=== PATIENT | male | born 1985 | race Two or more races ===

== ENCOUNTER 2025-04-16 08:18 | Emergency (ER) | payer SELFPAY ==
[~2025-04-16] VITALS: Ht 185.4 cm; Wt 81.0 kg
[2025-04-16 08:48] VITALS: PULSE 97; RESP 18; O2SAT 99
--- NOTE | 2025-04-16 08:55 | ED.PDOC ---
General HPI Comments 40 y.o male presents to the ED for a chief complaint of right flank pain radiating to his back that started 3 days ago. Patient describes pain as a throbbing sensation, is constant, and has no alleviating factors. Additionally, he mentions urine is dark with no blood noted. He denies any dysuria, fever, chills, abdominal pain, nausea, vomiting. He denies medical history or allergies. Chief Complaint: Flank Pain Time Seen by MD: 08:36 Reviewed notes: Nurses Notes, Medications, Allergies Allergies: Coded Allergies: NO KNOWN ALLERGIES (Unverified , 04/16/25) Information Source: Patient Mode of Arrival: Ambulatory Timing: Days (3) Duration: Since onset Onset: Spontaneous Symptoms: None History of: None Location: (R) Flank, (L)Flank Modifying factors: None associated signs and symptoms: Flank Pain, Back Pain Past Medical History PAST MEDICAL HISTORY: Denies Surgical History: Denies all surgeries Family History Family History: Reviewed,noncontributory to illness Social History Smoker: Cigarettes Alcohol: Denies ETOH Use Drugs: Denies Drug Use Lives In: Home Constitutional: denies: chills, diaphoresis, fatigue, fever, malaise, sweats, weakness, others EENTM: denies: blurred vision, double vision, ear bleeding, ear discharge, ear drainage, ear pain, ear ringing, eye pain, eye redness, hearing loss, mouth pain, mouth swelling, nasal discharge, nose bleeding, nose congestion, nose pain, photophobia, tearing, throat pain, throat swelling, voice changes, others Respiratory: denies: cough, hemoptysis, orthopnea, SOB at rest, shortness of breath, SOB with excertion, stridor, wheezing, others Cardiovascular: denies: chest pain, dizzy spells, diaphoresis, Dyspnea on exertion, edema, irregular heart beat, left arm pain, lightheadedness, palpitations, PND, syncope, others Gastrointestinal: denies: abdomen distended, abdominal pain, blood streaked bowels, constipated, diarrhea, dysphagia, difficulty swallowing, hematemesis, melena, nausea, poor appetite, poor fluid intake, rectal bleeding, rectal pain, vomiting, others Genitourinary: reports: flank pain; denies: burning, dysuria, frequency, hematuria, incontinence, penile discharge, penile sore, pain, testicle pain, testicle swelling, urgency, others Neurological: denies: dizziness, fainting, headache, left sided numbness, left sided weakness, numbness, paresthesia, pre-existing deficit, right sided numbness, right sided weakness, seizure, speech problems, tingling, tremors, weakness, others Musculoskeletal: reports: back pain; denies: gout, joint pain, joint swelling, muscle pain, muscle stiffness, neck pain, others Integumetry: denies: bruises, change in color, change in hair/nails, dryness, laceration, lesions, lumps, rash, wounds, others Allergic/Immunocompromised: denies: Difficulty Healing, Frequent Infections, Hives, Itching, others Hematologic/Lymphatic: denies: anemia, blood clots, easy bleeding, easy bruising, swollen glands, others Endocrine: denies: excessive hunger, excessive sweating, excessive thirst, excessive urination, flushing, intolerance to cold, intolerance to heat, unexplained weight gain, unexplained weight loss, others Psychiatric: denies: anxiety, bipolar disorder, depression, hopeless, panic disorder, schizophrenia, sleepless, suicidal, others All Other Systems: Reviewed and Negative Physical Exam General Appearance: Moderate Distress HEENT: Normal ENT Inspection, Pharynx Normal, TMs Normal Neck: Full Range of Motion, Non-Tender, Normal, Normal Inspection Respiratory: Chest Non-Tender, Lungs Clear, No Accessory Muscle Use, No Respiratory Distress, Normal Breath Sounds Cardiovascular: No Edema, No JVD, No Murmur, No Gallop, Normal Peripheral Pulses, Regular Rate/Rhythm Breast Exam: Deferred Gastrointestinal: No Organomegaly, Non Tender, No Pulsatile Mass, Normal Bowel Sounds, Soft Genitalia: Deferred Pelvic: Deferred Rectal: Deferred Extremities: No calf tenderness, Normal capillary refill, Normal inspection, Normal range of motion, Non-tender, No pedal edema Musculoskeletal : Apperance: Normal Neurologic: Alert, emt II-XII nml as Tested, No Motor Deficits, Normal Affect, Normal Mood, No Sensory Deficits Cerebellar Function: Normal Reflexes: Normal Skin: Dry, Normal Color, Warm Peripheral Pulses: 3+ Radial (R), 3+ Radial (L) Lymphatic: No Adenopathy Was a procedure done? Was a procedure done?: No Differential Diagnosis Kidney stone (Female): N/A Kidney stone (Male): Pyelonephritis, Strain Urinary Problem (Male): UTI X-Ray, Labs, Meds, VS Vital Signs Date Time Temp Pulse Resp B/P (MAP) Pulse Ox O2 Delivery O2 Flow Rate FiO2 04/16/25 08:48 97 18 99 Room Air* 0 21 04/16/25 08:20 98.3 97 18 117/82 99 98.3 04/16/25 08:20 98.3 97 18 117/82 (94) 99 98.3 Lab Test 04/16/25 08:50 Range/Units Urine Color Yellow Yellow Urine Clarity Clear Clear Urine pH 5.5 5.0-9.0 Urine Specific [place] 1.024 1.001-1.035 Urine Protein Negative Negative Urine Ketones Negative Negative Urine Blood Negative Negative /uL Urine Nitrite Negative Negative Urine Bilirubin Negative Negative Urine Urobilinogen Normal Negative mg/dL Urine Leukocyte Esterase Negative Negative /uL Urine RBC 1 0 - 3 /hpf Urine Microscopic WBC 1 0-3 /HPF Urine Squamous Epithelial Cells None seen <5 /hpf Urine Bacteria None seen None Seen /hpf Urine Glucose Normal Normal mg/dL Patient alert. Came in because of back pain. Vitals stable. Answering questions. Urinalysis shows within normal limits. Saturation pristine on room air. Heart rate within normal limits. X-ray of the lumbar spine does show chronic changes. No problem with his bowel. No problem with his urine. Was given [place]. Was given prescription of Motrin. Was told to follow up with his primary care physician. Was told to come back if there is any problem. Time of 1ST Reevaluation: 08:52 Reevaluation 1ST: Unchanged Patient Education/Counseling: Diagnosis, Treatment, Prognosis Family Education/Counseling: Diagnosis, Treatment, Prognosis SEPSIS Sepsis Screen Date sepsis recognized/suspect: Apr 16, 2025 Time Sepsis recognized/suspect: 820 Recent Procedure: No On Antibiotic Therapy: No Respiratory Rate >20: No Heart Rate >90: Yes Temp<36 C (96.8 F) or >38.3 C: No SBP <90 or MAP <65 mmHG: No New Acute Mental Status Change: No Is the patient on CPAP, BIPAP,: No Physician Orders Lumbar Spine 3 View (04/16/25 08:48) Vital Signs Date Time Temp Pulse Resp B/P (MAP) Pulse Ox O2 Delivery O2 Flow Rate FiO2 04/16/25 08:48 97 18 99 Room Air* 0 21 04/16/25 08:20 98.3 97 18 117/82 99 98.3 04/16/25 08:20 98.3 97 18 117/82 (94) 99 98.3 Departure 1 Departure Time of Disposition: 10:25 Impression: Primary Impression: Degenerative disc disease Qualified Codes: M51.369 - Other intervertebral disc degeneration, lumbar region without mention of lumbar back pain or lower extremity pain Disposition: 01 HOME / SELF CARE / HOMELESS Condition: Good e-Prescriptions Ibuprofen Micronized (MOTRIN TABLET) 600 Mg Tb 600 MG PO TID PRN for 7 Days, #21 TAB *Black box warning-NSAIDS can increase risk of TX & hypertension, GI irritation, ulceration, bleed, perferation. Do not use post cardiac surgery. Use short duration/lowest effective dose. Prov: RADHIKA HEAD MD 04/16/25 Discharged With: Self Critical Care Note Critical Care Time?: No Stability Stability form required: No I personally scribed for RADHIKA HEAD MD ([email or web address]) on 04/16/25 at 08:55. Electronically submitted by Ester Medrano ([facility]). RADHIKA HEAD MD Apr 16, 2025 08:55
--- NOTE | 2025-04-16 09:21 | DVH ---
Indication: degen Technique: XY LUMBAR SPINE 3 VIEWXY Comparison: None FINDINGS/IMPRESSION: Lumbar vertebral body heights maintained. [id number] multilevel disc space narrowing. Alignment preserved. Tlud-pj-[id number] facet hypertrophic changes most pronounced at L5-S1. Pelvic vascular phleboliths.
[2025-04-16 09:30] LABS: Urine Protein, UAD Negative (Negative)
[2025-04-16] MEDS ORDERED: IBU600T PO (10:26)
[2025-04-16 10:33] VITALS: BP 121/68; PULSE 68; RESP 18; TEMP 98.2; O2SAT 98
[2025-04-16] MEDS: HYDROcodone-ACET 10/325MG TAB PO ONE (10:35)
== END 2025-04-16 10:37 | disposition home or self-care (01) ==
LOC: ER 08:18
DX: M51.369 Other intervertebral disc degeneration, lumbar region without mention of lumbar back pain or lower extremity pain (principal); F17.210 Nicotine dependence, cigarettes, uncomplicated
CPT/HCPCS: 72100; 81001